=== PATIENT | female | born 1975 | race American Indian/Alaskan Native ===

== ENCOUNTER 2017-01-14 14:02 | Outpatient (CLI) | payer OTHER ==
[2017-01-14 14:26] VITALS: BP 103/67
--- NOTE | 2017-01-15 07:44 | Ultrasound Report ---
ULTRASOUND OB LIMITED History: well being, oligohydramnios, evaluate amniotic fluid Technique: Transabdominal ultrasound with Doppler interrogation. Gestation: Single Position: Cephalic Amniotic Fluid: Normal TIFFANY = 12.3 cm Heart Rate: 162 BPM
== END 2017-01-14 15:07 | disposition home or self-care (01) ==
LOC: TRG 14:02
PROVIDERS: ATTEND Obstetrics & Gynecology
DX: O47.03 False labor before 37 completed weeks of gestation, third trimester (principal); Z3A.34 34 weeks gestation of pregnancy
CPT/HCPCS: 76815

== ENCOUNTER 2017-02-11 07:47 | Outpatient (CLI) | payer OTHER ==
[2017-02-11 12:08] VITALS: BP 103/68
== END 2017-02-11 10:57 | disposition home or self-care (01) ==
LOC: TRG 07:47
PROVIDERS: ATTEND Obstetrics & Gynecology Gynecology
DX: O09.523 Supervision of elderly multigravida, third trimester (principal); O47.03 False labor before 37 completed weeks of gestation, third trimester; Z3A.38 38 weeks gestation of pregnancy

== ENCOUNTER 2017-02-11 20:25 | Inpatient (IN) | payer OTHER ==
[2017-02-11] MEDS ORDERED: LACTATED RINGERS 1,000 ML ONE (23:36)
[2017-02-11] MEDS ORDERED: LACTATED RINGERS 1,000 ML IV SCH (23:45)
--- NOTE | 2017-02-11 23:56 | History and Physical Report ---
History of Present Illness Date of examination: 02/11/17 Date of admission: 02/11/17 23:04 Chief complaint: Painful Contractions History of present illness: 41-year-old at 38+3 weeks presents in active labor, she is a [facility] patient. course complicated by late presentation from [place] and ambiguous genitalia. She is GBS negative Past History Past Medical History: no pertinent history Past Surgical History: no surgical history [employer] History: denies: chlamydia, gonorrhea, hepatitis B, hepatitis C, herpes, HIV , syphilis, trichomonas Social history: , full code. denies: smoking, alcohol abuse, prescription drug abuse, IV drug use - Obstetrical History Expected Date of Delivery: 02/22/17 Actual Gestation: 38 Week(s) 3 Day(s) : 8 Para: 3 Medications and Allergies Allergies Allergy/AdvReac Type Severity Reaction Status Date / Time No Known Allergies Allergy Unverified 01/14/17 14:05 Home Medications Medication Instructions Recorded Confirmed Last Taken Type No Known Home Medications [No 01/14/17 01/14/17 Unknown History Reported Home Medications] Active Meds: Active Medications Lactated Ringer's (Lactated Ringers) 1,000 mls @ 125 mls/hr IV DIRECT CORY Influenza Virus Vaccine Quadrival (Fluarix Quad [id number](36 Mos+)) 0.5 ml IM .ONCE ONE Stop: 02/11/17 23:47 Review of Systems Constitutional: no fever, no chills, no fatigue Cardiovascular: no chest pain, no orthopnea, no palpitations, no syncope, no lightheadedness, no shortness of breath, no dyspnea on exertion, no paroxysmal nocturnal dyspnea, no high blood pressure Respiratory: no cough, no cough with sputum, no shortness of breath, no dyspnea on exertion Gastrointestinal: no abdominal pain, no nausea, no vomiting, no early satiety, no heartburn, no indigestion Genitourinary: no vaginal bleeding, no vaginal discharge, no leakage of fluid - Vital Signs Vital signs: Vital Signs Pulse Pulse Ox 117 H 99 02/11/17 20:46 02/11/17 20:46 Temp Pulse Resp BP Pulse Ox 98.4 F 121 H 18 114/68 100 02/11/17 20:55 02/11/17 23:53 02/11/17 20:55 02/11/17 20:55 02/11/17 23:53 - Physical Exam Cardiovascular: Regular rate, Normal S1, Normal S2 Lungs: Positive: Clear to auscultation, Normal air movement Abdomen: Positive: normal appearance, soft. Negative: distention, tenderness, guarding, rigidity Genitourinary (Female): Positive: normal external genitalia Uterus: Positive: enlarged (EFW ~ 3700). Negative: tender Adnexa: both: normal Extremities: Positive: normal - Obstetrical FHR: category 1 Cervical Dilatation: 6 station: -1 Results All other labs normal. Assessment and Plan A: 41-year-old at 38+3 weeks in active labor -Cat 1 tracing -Patient AROMed with thick meconium P: -Admit -Obtain routine labs -Epidural when necessary -Anticipate normal vaginal delivery - Patient Problems (1) 38 weeks gestation of Current Visit: Yes Status: Acute (2) Active labor at term Current Visit: Yes Status: Acute (3) Meconium passage during delivery Current Visit: Yes Status: Acute (4) AMA (advanced maternal age) multigravida 35+ Current Visit: Yes Status: Acute Qualifiers: Trimester: T
[2017-02-12] MEDS ORDERED: BRETHINE IVP PRN (00:01)
[2017-02-12] MEDS ORDERED: ZOFRAN IV PRN ×2 (00:01→01:12)
[2017-02-12] MEDS ORDERED: ePHEDrine SULFATE IV PRN (00:01)
[2017-02-12] MEDS ORDERED: XYLOCAINE 2% INFILTRATI ONE (00:01)
[2017-02-12] MEDS ORDERED: BRETHINE SUB-Q PRN (00:01)
[2017-02-12] MEDS ORDERED: MINERAL OIL PO PRN (00:01)
[2017-02-12] MEDS ORDERED: CYTOTEC PR ONE (00:04)
[2017-02-12] MEDS ORDERED: METHERGINE IM ONE (00:55)
[2017-02-12] MEDS ORDERED: LACTATED RINGERS 1,000 ML IV SCH (01:00)
[2017-02-12] MEDS ORDERED: PITOCin/NS 20 UNIT/1000ML DRIP 20 UNITS/1,000 ML BAG IV SCH ×2 (01:00→02:00)
[2017-02-12] MEDS ORDERED: PITOCin/NS 30 UNIT/500ML 30 UNITS/500 ML BAG IV SCH ×2 (01:00)
[2017-02-12] MEDS ORDERED: HEMABATE IM ONE ×2 (01:02→01:12)
--- NOTE | 2017-02-12 01:11 | Procedure Note ---
OB Delivery Note - Delivery Date of Delivery: 02/12/17 Estimated blood loss: other (600cc) - Vaginal Delivery presentation: vertex Delivery position: OA Intrapartum events: meconium, precipitous labor- <3hr, hemorrhage, other(please specify) (poor maternal effort impeding delivery of shoulders for ~ 30 seconds) Delivery induction: none Delivery augmentation: rupture of membranes Delivery monitor: external FHT, external uterine Route of delivery: Delivery placenta: spontaneous Delivery cord: nuchal cord (x 2 loose reduced at delivery), 3 umbilical vessels Episiotomy: none Delivery laceration: 2nd degree Delivery repair: vicryl Anesthesia: local - Infant A at 1 minute: 8 at 5 minutes: 8 Gender: Male (Del @ 00:45, weight is 7#7 or 3373 g)
[2017-02-12] MEDS ORDERED: MILK OF MAGNESIA PO PRN (01:12)
[2017-02-12] MEDS ORDERED: ANUCORT-HC PR PRN (01:12)
[2017-02-12] MEDS ORDERED: PHENERGAN PR PRN (01:12)
[2017-02-12] MEDS ORDERED: BENADRYL PO PRN (01:12)
[2017-02-12] MEDS ORDERED: TYLENOL PO PRN (01:12)
[2017-02-12] MEDS ORDERED: LANSINOH TP PRN ×2 (01:12)
[2017-02-12] MEDS ORDERED: PHENERGAN PO PRN (01:12)
[2017-02-12] MEDS ORDERED: TUCKS PAD TP PRN (01:12)
[2017-02-12] MEDS ORDERED: METHERGINE IM PRN (01:12)
[2017-02-12] MEDS ORDERED: DULCOLAX PR PRN (01:12)
[2017-02-12] MEDS ORDERED: SUBLIMAZE IV ONE (01:28)
[2017-02-12] MEDS ORDERED: SUBLIMAZE ONE (01:31)
[2017-02-12] MEDS ORDERED: SODIUM CHLORIDE FLUSH SYRINGE 10 ML IV NR (02:00)
[2017-02-12 03:13] LABS: Hematocrit 37.3 % (30.3-42.9); Hemoglobin 12.4 gm/dl (10.1-14.3); Mean Corpuscular HGB Conc 33 % (30-34); Mean Corpuscular Hemoglobin 29 pg (28-32); Mean Corpuscular Volume 87 fl (79-97); Platelet Count 161 K/mm3 (140-440); Red Blood Count 4.31 M/mm3 (3.65-5.03); White Blood Count 13.8 K/mm3 (4.5-11.0)
[2017-02-12] MEDS: NORCO 5/325 PO PRN ×2 (03:52→09:31)
[2017-02-12] MEDS: MOTRIN PO SCH ×4 (05:20→22:33)
[2017-02-12] MEDS: SENOKOT S PO SCH ×2 (06:07→22:31)
[2017-02-12] MEDS: COLACE PO SCH ×2 (09:33→22:32)
[2017-02-12] MEDS: FEOSOL PO SCH ×2 (09:33→22:32)
[2017-02-12] MEDS ORDERED: Fluarix Quad 2017-2018(36 MOS+) IM ONE (12:00)
[2017-02-12 16:11] LABS: Hematocrit 33.6 % (30.3-42.9)
[2017-02-13] MEDS: MOTRIN PO SCH ×3 (00:53→18:42)
[2017-02-13] MEDS ORDERED: M-M-R II VACCINE SUB-Q ONE (06:00)
[2017-02-13] MEDS ORDERED: BOOSTRIX IM ONE (06:00)
[2017-02-13] MEDS: SENOKOT S PO SCH (07:59)
[2017-02-13] MEDS: PRENATAL VITAMIN PO SCH (07:59)
[2017-02-13] MEDS: COLACE PO SCH ×2 (08:00→22:26)
[2017-02-13] MEDS: FEOSOL PO SCH ×2 (08:00→22:26)
--- NOTE | 2017-02-13 12:08 | Progress Note ---
Assessment and Plan - Patient Problems (1) (normal spontaneous vaginal delivery) Onset Date: 02/13/17 Current Visit: Yes Status: Resolved Plan to address problem: A: S/P - PPD #1 Doing well P: May go home tomorrow. Subjective - Subjective Date of service: 02/13/17 Principal diagnosis: s/p - PPD #1 Interval history: Pt is feeling well without complaints. Bleeding improved. Baby in NICU. Patient reports: appetite normal, voiding normally, pain well controlled, flatus , ambulating normally : doing well, in NICU Objective - Vital Signs Latest vital signs: Vital Signs Temp Pulse Resp BP Pulse Ox 02/13/17 09:09 98.2 F 73 20 100/58 02/13/17 06:31 16 02/13/17 05:36 18 02/13/17 00:53 18 02/13/17 00:28 98.4 F 80 18 91/56 02/12/17 22:33 16 02/12/17 17:00 98.9 F 74 18 103/65 99 Intake and Output 02/12/17 02/13/17 02/13/17 22:59 06:59 14:59 Intake Total 360 360 120 Balance 360 360 120 Intake: Oral 120 120 120 Intake, Free Water 240 240 Other: Total, Intake Amount 120 120 120 # Voids Void 1 1 1 - Exam Breasts: Present: deferred Cardiovascular: Present: Regular rate Lungs: Present: Clear to auscultation Abdomen: Present: normal appearance Uterus: Present: normal, firm, fundal height below umbilicus Extremities: Present: normal - Labs Labs: Laboratory Tests 02/11/17 02/11/17 02/12/17 23:26 23:35 15:16 WBC 13.8 H RBC 4.31 Hgb 12.4 11.0 Hct 37.3 33.6 MCV 87 MCH 29 MCHC 33 RDW 15.0 Plt Count 161 Blood Type O POSITIVE WILLY Antibody Screen Negative
--- NOTE | 2017-02-13 14:49 | Discharge Summary ---
Providers - Providers Date of Admission: 02/11/17 23:04 Date of discharge: 02/14/17 Attending physician: CORDELL RODGERS Primary care physician: CORDELL RODGERS Hospitalization Reason for admission: active labor, IUP at term Delivery: Episiotomy: none Laceration: 2nd degree Other procedures: none complications: none Discharge diagnosis: IUP at term delivered [place] baby: male Hospital course: Unremarkable. Condition at discharge: Good Disposition: DC-01 TO HOME OR SELFCARE - Discharge Diagnoses (1) (normal spontaneous vaginal delivery) Status: Resolved Plan - Discharge Medications Prescriptions: Ibuprofen [Motrin 600 MG tab] 600 mg PO Q8H PRN #30 tablet PRN Reason: Pain Multivitamin with Iron [Multivitamins with Iron] 1 each PO DAILY #30 tablet - Provider Discharge Summary Activity: routine, no sex for 6 weeks, no heavy lifting 4 weeks, no strenuous exercise Diet: routine Instructions: routine Additional instructions: [] Smoking cessation referral if applicable(refer to patient education folder for contact #) [] Refer to [facility] Booklet Call your doctor immediately for: * Fever > 100.5 * Heavy vaginal bleeding ( >1 pad per hour) * Severe persistent headache * Shortness of breath * Reddened, hot, painful area to leg or breast * Drainage or odor from incision. * Keep incision clean and dry at all times and follow doctor's instructions regarding bathing/showering - Follow up plan Follow up: CORDELL RODGERS MD [Primary Care Provider] - 6 Weeks
[2017-02-13] MEDS: NORCO 5/325 PO PRN (15:20)
[2017-02-14] MEDS: MOTRIN PO SCH ×3 (00:05→12:56)
[2017-02-14] MEDS ORDERED: Fluarix Quad 2017-2018(36 MOS+) IM ONE (11:00)
[2017-02-14] MEDS: PRENATAL VITAMIN PO SCH (12:56)
[2017-02-14] MEDS: COLACE PO SCH (12:57)
[2017-02-14 17:54] VITALS: BP 109/68
== END 2017-02-14 21:23 | disposition home or self-care (01) | DRG 775 ==
LOC: TRG 20:25 → LD 23:04 → OB 02-12 02:57
PROVIDERS: ADMIT Obstetrics & Gynecology Gynecology; ATTEND Obstetrics & Gynecology Gynecology
PROC: 10E0XZZ Delivery of Products of Conception, External Approach (ICD-10-PCS; principal; 2017-02-12)
PROC: 0KQM0ZZ Repair Perineum Muscle, Open Approach (ICD-10-PCS; 2017-02-12)
DX: O77.0 Labor and delivery complicated by meconium in amniotic fluid (principal); Z37.0 Single live birth; Z3A.38 38 weeks gestation of pregnancy; O69.81X0 Labor and delivery complicated by cord around neck, without compression, not applicable or unspecified; O70.1 Second degree perineal laceration during delivery
CPT/HCPCS: 36415; 85014; 85018; 85027; 86850; 86900; 86901; 90471; 90686; 90715; 99211; A6250; G0008; G0463; J2210; J2590; J3010; J7120